=== PATIENT | female | born 1955 | race Caucasian/White ===

== ENCOUNTER 2017-08-06 02:17 | Emergency (ER) ==
[2017-08-06 02:35] VITALS: BP 0/0; TEMP 97.3; BMI 38.9
--- NOTE | 2017-08-06 02:35 | ED.PDOC ---
General ED Provider: Dr. GIL RAMOS-ER Chief Complaint: Cardiac Arrest Stated Complaint: brought in by [employer] [facility]---had been ill lately with vomiting- cpr in progress--ems estimated pulseless for 45 min Time Seen by Physician: 02:15 Mode of Arrival: Ambulance Information Source: Family, EMT Exam Limitations: Clinical condition Nursing and Triage Documentation Reviewed and Agree: Yes Cardiac Resuscitation - Cardiac Resuscitation/Physical Exam Onset/Duration: Unknown Airway Prehospital Findings: Reports: Patent Breathing Prehospital Findings: Reports: Apnea Circulation/Rhythm Prehospital Findings: Reports: Pulses absent Disability/Neurological Prehospital Findings: Reports: Unresponsive Breathing Prehospital Intervention: Reports: Oxygen, Bag-valve mask Circulation/Rhythm Prehospital Intervention: Reports: Chest compressions, IV/IO placed, Epinephrine Breathing Prehospital Response: Present: Equal breath sounds Circulation/Rhythm Prehospital Response: Present: Pulses absent Airway ED Findings: Patent Breathing ED Findings: Present: Apnea Circulation/Rhythm ED Findings: Present: Pulses absent Disability/Neurological ED Findings: Present: Unresponsive Breathing ED Intervention: Bag-valve mask, Intubated by [employer] Circulation/Rhythm ED Intervention: Chest compressions, IV/IO placed, Epinephrine Breathing ED Response: ETT in airway Circulation/Rhythm ED Response: Present: Pulses absent Right Pupil: Fixed Left Pupil: Fixed EMS/Code Sheet Reviewed: Yes Patient is a DNR: No Patient Has a Living Will: Yes Resuscitation Successful: No Preliminary Cause of : cardiac arrest Differential Diagnoses: Acute [place], Card. Rhythm Disturbance, Sudden Past Medical History - Past Medical History Previously Healthy: No Endocrine: Reports: Unknown Cardiovascular: Reports: Unknown Respiratory: Reports: Unknown Hematological: Reports: Unknown Gastrointestinal: Reports: Unknown Genitourinary: Reports: Unknown Neuro/Psych: Reports: Unknown Musculoskeletal: Reports: Unknown Cancer: Reports: Unknown - Surgical History General Surgical History: Reports: Unknown - Family History Family History: Reports: Unknown Interpretation - Radiology Interpretation Exam Interpreted: Portable CXR Procedures - Intubation Indication: Present: Respiratory Insufficiency, Altered Mental Status Type of Tube Used: Endotracheal Tube Size: 6.5 Cricoid Pressure Used: Yes Tube Summers Used: Yes Number of Attempts: 1 Suction Used: Yes Glidescope Used: Yes CO2 Detector Used: Yes Lung Sounds Equal Bilaterally: Yes Intubation Complications: Present: No complications Tube Inserted By: andrews Critical Care Note - Critical Care Note Total Time (mins): 15 Departure - Departure Time of Disposition: 02:37 Disposition: Discharge Problem: Cardiac arrest Condition: Pt referred to PMD for follow-up: Yes Disposition Discussed With: Family
[2017-08-06] MEDS ORDERED: EPINEPHRINE 1:10,000 SYRINGE IV STA ×4 (02:40→02:41)
[2017-08-06] MEDS ORDERED: SODIUM BICARBONATE 8.4% IVP STA ×2 (02:41→02:42)
--- NOTE | 2017-08-06 02:45 | ED.PDOC ---
Procedures - Intubation Indication: Present: Other (Cardiac Arrest) Time of Intubation: 02:20 Type of Tube Used: Endotracheal (ET CO2 +/ BBS) Tube Size: 6.5 Cricoid Pressure Used: No Tube Summers Used: Yes Position of Tube at Lip: 20 Number of Attempts: 1 Suction Used: No Glidescope Used: No CO2 Detector Used: Yes Lung Sounds Equal Bilaterally: Yes Intubation Complications: Present: No complications Tube Inserted By: Sunday Key CRNA Tube Placement Verified by X-ray: Yes Conscious Sedation - Pre-op Assessment Weight: 220 lb Surgical History: unknown - Medical History Past Medical History: Unknown
== END 2017-08-06 04:57 | disposition expired ==
LOC: EDSEX 02:17 → ED 02:17
DX: I46.9 Cardiac arrest, cause unspecified (principal)
CPT/HCPCS: 31500; 96361; 96374; 96375; 99291